=== PATIENT | female | born 1990 | race Caucasian/White ===

== ENCOUNTER 2023-08-30 12:16 | Emergency (ER) | payer SELFPAY ==
[2023-08-30 12:25] VITALS: BP 133/60; PULSE 63; RESP 18; TEMP 36.1; O2SAT 98; BMI 33.3
--- NOTE | 2023-08-30 13:35 | PC.NURSE ---
Patient was wanting to be given an inhaler today from ED. Educated patient that we would be unable to do that today as pharmacies are open and that she could be given a prescription for one. Listened to patient's lung sounds, clear to auscultation throughout, not in acute respiratory distress at time of assessment. Patient requesting to leave after education. Provider made aware patient leaving.
== END 2023-08-30 13:36 | disposition left against medical advice (07) ==
PROVIDERS: Emergency Provider Physician Assistant
DX: Z76.0 Encounter for issue of repeat prescription (principal)
CPT/HCPCS: 99281

== ENCOUNTER 2023-10-30 14:01 | Emergency (ER) | payer SELFPAY ==
[2023-10-30 14:20] VITALS: BP 130/68; PULSE 76; RESP 14; TEMP 36.3; O2SAT 97; BMI 33.3
--- NOTE | 2023-10-30 15:01 | ED_ITS ---
HPI - Recheck/Abnormal Lab/Rx <Rae Valenzuela PA-C - Last Filed: 10/30/23 15:30> General Chief Complaint: Recheck/Abnormal Lab/Rx Stated Complaint: need inhaler Time Seen by Provider: 10/30/23 15:01 Source: patient Mode of arrival: Ambulatory History of Present Illness HPI narrative: 33-year-old female with longstanding history is asthma is requesting an albuterol inhaler refill. She is currently in between providers as she lost her current medical insurance and she is looking for a new 1. She is denying any acute complaints whatsoever. She was diagnosed with asthma at around the 4th grade, she still continues to smoke and has been since about age 13 but has dropped from 1 pack a day to about a half pack per day. She used to be on a controller she is unsure of what type of medicine this was, as far as her albuterol use she takes a puff generally every day. No history of intubations or hospitalizations due to her asthma. All other systems are reviewed and are negative. Related Data Previous Rx's Medication Instructions Recorded albuterol sulfate 90 mcg/actuation 2 puff inhalation Q6H PRN 11/20/22 aerosol inhaler shortness of breath or wheezing #6.7 grams benzonatate 100 mg capsule 100 mg PO BID PRN cough #20 caps 11/20/22 fluticasone propionate 50 1 spray intranasal Q12H #16 grams 11/20/22 mcg/actuation nasal spray,suspension (Flonase Allergy Relief) albuterol sulfate 90 mcg/actuation 2 puff inhalation Q6H PRN 10/30/23 aerosol inhaler (ProAir HFA) shortness of breath or wheezing #6.7 grams Allergies Allergy/AdvReac Type Severity Reaction Status Date / Time No Known Drug Allergies Allergy Unverified 11/20/22 16:09 Patient History <Rae Valenzuela PA-C - Last Filed: 10/30/23 15:30> Social History Smoking Status: Current every day smoker Smoking Status: Current every day smoker tobacco type: cigarettes alcohol intake frequency: a few times a month Alcohol type: wine Substance Use Type: marijuana Exam <Rae Valenzuela PA-C - Last Filed: 10/30/23 15:30> Initial Vital Signs Initial Vital Signs: Vital Signs Temperature 97.4 F L 10/30/23 14:20 Pulse Rate 76 10/30/23 14:20 Respiratory Rate 14 10/30/23 14:20 Blood Pressure 130/68 10/30/23 14:20 Pulse Oximetry 97 10/30/23 14:20 Oxygen Delivery Method Room Air 10/30/23 14:20 Reviewed and are normal. Const Other: Smiling, seated, reading a book, no distress. Work of breathing is normal. Neck Other: No adenopathy. Resp Other: Clear to auscultation throughout all girard, no wheezes rales or rhonchi. Work of breathing is normal. Equal expansion. Cardio Other: Regular rate and rhythm. Skin Other: Normal color, turgor, temperature, no cyanosis and no eczematous findings. <Lanette Madera DO - Last Filed: 11/05/23 21:01> Initial Vital Signs Initial Vital Signs: Vital Signs Temperature 97.4 F L 10/30/23 14:20 Pulse Rate 76 10/30/23 14:20 Respiratory Rate 14 10/30/23 14:20 Blood Pressure 130/68 10/30/23 14:20 Pulse Oximetry 97 10/30/23 14:20 Oxygen Delivery Method Room Air 10/30/23 14:20 Course <Rae Valenzuela PA-C - Last Filed: 10/30/23 15:30> Vital Signs Vital signs: Vital Signs - 8 hr 10/30/23 14:20 Temperature 97.4 F L Pulse Rate 76 Respiratory Rate 14 Blood Pressure 130/68 Pulse Oximetry 97 Oxygen Delivery Method Room Air <Lanette Madera DO - Last Filed: 11/05/23 21:01> Vital Signs Vital signs: Vital Signs - 8 hr 10/30/23 14:20 Temperature 97.4 F L Pulse Rate 76 Respiratory Rate 14 Blood Pressure 130/68 Pulse Oximetry 97 Oxygen Delivery Method Room Air MDM - Recheck/Abnormal Lab/Rx <Rae Vlaenzuela PA-C - Last Filed: 10/30/23 15:30> MDM Narrative Medical decision making narrative: Albuterol inhaler is prescribed, I have given her 2 refills 1 for if she loses it and to to have a backup and give her some time to reestablish primary care. She will look online for [facility] and reestablish. Red flag warning signs are reviewed in detail. Discussed asthma as 3 components including inflammation, mucus and bronchoconstriction. She might benefit from a controller to minimize her use of the rescue inhaler. Seek medical attention if anything arises. Discharge Plan Departure Patient Disposition: Home Clinical Impression: Encounter for medication refill Asthma Qualifiers: Asthma severity: unspecified severity Asthma persistence: unspecified Asthma complication type: unspecified Qualified Code(s): J45.909 - Unspecified asthma, uncomplicated Instructions: Albuterol and Ipratropium Oral Inhalation Activity Restrictions/Additional Instructions: I have prescribed the albuterol inhaler with 2 refills. Please try to reestablish primary care and I wish you the best of luck and finding an insurance plan. We do have our walk-in clinic that is available as well if you need assistance with her medication. Please seek medical attention if you have any issues. Again asthma is a combination of inflammation, mucus as well as bronchoconstriction, there are other medications that can give you better control rather than having to use her rescue inhaler every day. Obviously keep trying to cut down on her smoking and eventually quit, it is one of the hardest things to do and I wish you the best of luck as well Prescriptions: New albuterol sulfate [ProAir HFA] 90 mcg/actuation HFA aerosol inhaler 2 puff inhalation Q6H PRN (Reason: shortness of breath or wheezing) Qty: 6.7 2RF No Action albuterol sulfate 90 mcg/actuation HFA aerosol inhaler 2 puff inhalation Q6H PRN (Reason: shortness of breath or wheezing) Qty: 6.7 0RF fluticasone propionate [Flonase Allergy Relief] 50 mcg/actuation spray,suspension 1 spray intranasal Q12H Qty: 16 0RF Rx Instructions: administer into each nostril benzonatate 100 mg capsule 100 mg PO BID PRN (Reason: cough) Qty: 20 0RF Referrals: Miscellaneous,Doctor, MD [Primary Care Provider] - Stand Alone Forms: Patient Portal/API ED Sign-out <Lanette Madera DO - Last Filed: 11/05/23 21:01> Cosign ED Attending Kendra Attestation: I was available for consultation.
--- NOTE | 2023-10-30 15:37 | PC.NURSE ---
pt here for medication refill, has no PCP or insurance currently, so she came to ER for help. exam done by provider
== END 2023-10-30 15:37 | disposition home or self-care (01) ==
PROVIDERS: Emergency Provider Physician Assistant Medical
DX: Z76.0 Encounter for issue of repeat prescription (principal); J45.909 Unspecified asthma, uncomplicated; F17.210 Nicotine dependence, cigarettes, uncomplicated
CPT/HCPCS: 99281; 99282

== ENCOUNTER 2024-07-24 14:21 | Emergency (ER) | payer OTHER, MEDICAID, SELFPAY ==
[2024-07-24 14:38] VITALS: BP 130/58; PULSE 62; RESP 16; TEMP 37; O2SAT 98; BMI 35.1
--- NOTE | 2024-07-24 15:38 | DI.RAD.S_ITS ---
PROCEDURE: XR FOOT RT MIN 3V INDICATIONS: nontraumatic R foot pain worse with standing TECHNIQUE: 3 views of the foot were acquired. COMPARISON: None. FINDINGS: Bones: No fractures or dislocations. No suspicious bony lesions. Incidental note is made of a bipartite medial sesamoid bone. Incidental note is made of an accessory ossicle, an os tibiale externum. Soft tissues: No tibiotalar joint effusion. Achilles tendon appears normal. IMPRESSION: No significant plain film abnormality is seen. Dictated by: Nathan Lucio M.D. on 07/24/2024 at 15:16 Approved by: Nathan Lucio M.D. on 07/24/2024 at 15:16
--- NOTE | 2024-07-24 16:12 | ED.EXTPRO ---
HPI - Extremity Problem <Terese Menon PA-C - Last Filed: 07/24/24 17:05> General Chief complaint: Extremity Problem,Nontraumatic Stated complaint: right foot pain Time Seen by Provider: 07/24/24 15:37 Source: patient Mode of arrival: Family Vehicle History of Present Illness HPI Narrative: Ms. Jesus Millan is a very pleasant 34-year-old female with a past medical history of asthma who presents to the emergency department for dorsal right foot pain x3 weeks. Patient states she had no traumatic injury that inside of the pain but has been gradually worsening over the last 3 weeks. She does state that she recently got a new position at work and she is on her feet most of the day. Describes the pain is primarily on the lateral dorsal aspect of the right foot. Pain is worse with walking, standing and of the foot gets hit/bumped. No swelling or skin changes. No redness, lesions, increased warmth, fevers, chills. No history of gout. She does not like taking medications so she did try ibuprofen 1 time without much relief. Related Data Home Medications Medication Instructions Recorded Confirmed cetirizine 10 mg capsule (All Day 10 mg PO DAILY PRN 03/19/24 05/20/24 Allergy (cetirizine)) Previous Rx's Medication Instructions Recorded albuterol sulfate 90 mcg/actuation 2 puff inhalation Q6H PRN 10/30/23 aerosol inhaler (ProAir HFA) shortness of breath or wheezing #6.7 grams inhalational spacing device #1 ea 03/19/24 (BreatheRite MDI Spacer) albuterol sulfate 90 mcg/actuation 2 puff inhalation Q4-6H PRN 03/21/24 aerosol inhaler shortness of breath or wheezing #8.5 grams fluticasone propionate 100 1 inh inhalation BID #60 ea 03/21/24 mcg/actuation blister powder for inhalation amoxicillin 875 mg-potassium 1 tab PO BID #20 tabs 05/17/24 clavulanate 125 mg tablet Allergies Allergy/AdvReac Type Severity Reaction Status Date / Time No Known Drug Allergies Allergy Verified 05/20/24 09:29 Review of Systems <Terese Menon PA-C - Last Filed: 07/24/24 17:05> Review of Systems ROS Unobtainable: All systems reviewed & are unremarkable except as noted in HPI and below Patient History <Terese Menon PA-C - Last Filed: 07/24/24 17:05> Medical History Eczema Allergies Anxiety Chronic back pain Chicken pox Tobacco abuse Asthma Surgical History History of adenoidectomy Family History Father Cancer Mother Hypertension Mental health problem Grandfather Cancer Social History Smoking Status: Current every day smoker Smoking Status: Current every day smoker tobacco type: cigarettes alcohol intake frequency: a few times a month Alcohol type: wine Exam <Terese Menon PA-C - Last Filed: 07/24/24 17:05> Narrative Exam Narrative: GENERAL: 34 year old patient appears stated age. Well-developed patient, in no acute distress. HEAD: Atraumatic. Normocephalic. . CARDIOVASCULAR: Regular rate RESPIRATORY: ?Nonlabored respirations. ?Speaking in clear, full sentences. EXTREMITIES: Tenderness to palpation of right dorsal foot primarily along lateral aspect/5th metatarsal. No focal or point tenderness. No tenderness to palpation of medial or lateral malleolus. No swelling or skin changes. No tenderness to palpation of 1st MCP. Fungal disease of 1st toenail. Strong DP and PT pulses, brisk capillary refill, sensation intact to light touch the dorsal and plantar aspect of the foot. NEURO: AOx3. ?Clear speech. ?Moves all 4 extremities appropriately. SKIN: No rash or erythema of visible areas Initial Vital Signs Initial Vital Signs: Vital Signs Temperature 98.6 F 07/24/24 14:38 Pulse Rate 62 07/24/24 14:38 Respiratory Rate 16 07/24/24 14:38 Blood Pressure 130/58 L 07/24/24 14:38 Pulse Oximetry 98 07/24/24 14:38 Oxygen Delivery Method Room Air 07/24/24 14:38 <Ann Manning MD - Last Filed: 07/26/24 07:32> Initial Vital Signs Initial Vital Signs: Vital Signs Temperature 98.6 F 07/24/24 14:38 Pulse Rate 62 07/24/24 14:38 Respiratory Rate 16 07/24/24 14:38 Blood Pressure 130/58 L 07/24/24 14:38 Pulse Oximetry 98 07/24/24 14:38 Oxygen Delivery Method Room Air 07/24/24 14:38 Course <Terese Menon PA-C - Last Filed: 07/24/24 17:05> Orders Ordered: ED Orders 07/24/24 15:38 XR foot RT min 3V Stat Vital Signs Vital signs: Vital Signs - 8 hr 07/24/24 14:38 Temperature 98.6 F Pulse Rate 62 Respiratory Rate 16 Blood Pressure 130/58 L Pulse Oximetry 98 Oxygen Delivery Method Room Air <Ann Manning MD - Last Filed: 07/26/24 07:32> Orders Ordered: ED Orders 07/24/24 15:38 XR foot RT min 3V Stat Vital Signs Vital signs: Vital Signs - 8 hr 07/24/24 14:38 Temperature 98.6 F Pulse Rate 62 Respiratory Rate 16 Blood Pressure 130/58 L Pulse Oximetry 98 Oxygen Delivery Method Room Air MDM - Extremity (Nontraumatic) <Terese Menon PA-C - Last Filed: 07/24/24 17:05> Imaging Data Right Foot X-Ray: Radiologist's Impression: PROCEDURE: XR FOOT RT MIN 3V INDICATIONS: nontraumatic R foot pain worse with standing TECHNIQUE: 3 views of the foot were acquired. COMPARISON: None. FINDINGS: Bones: No fractures or dislocations. No suspicious bony lesions. Incidental note is made of a bipartite medial sesamoid bone. Incidental note is made of an accessory ossicle, an os tibiale externum. Soft tissues: No tibiotalar joint effusion. Achilles tendon appears normal. IMPRESSION: No significant plain film abnormality is seen. MDM Narrative Medical decision making narrative: 34-year-old female with a past medical history of asthma who presents to the emergency department for dorsal right foot pain x3 weeks. Differential diagnosis includes but is not limited to tendinitis, stress fracture, sprain, strain, arthritis, gout, bone spur, etc. On exam the patient is in no acute distress, nontoxic appearing, vital signs appropriate. She is pain on the lateral dorsal aspect of her right foot with no known trauma. No skin changes, increased warmth, pain with range of motion, focal/pinpoint pain. We will obtain x-ray right foot rule out bony abnormality. She would declines pain medicine at this time. Foot x-ray reveals no acute bony abnormality. Patient was provided with Will wrap and recommended to wrap the foot for compression. We discussed rice therapy, ibuprofen/Tylenol, rest, follow up with [facility]. Also recommended PCP for ER follow up. Advised supportive footwear. Patient declines need for pain medicine or crutches. She verbalized understanding of all information and is stable for discharge home. Discharge Plan Departure Patient Disposition: Home Clinical Impression: Right foot strain Qualifiers: Encounter type: initial encounter Qualified Code(s): S96.911A - Strain of unspecified muscle and tendon at ankle and foot level, right foot, initial encounter Instructions: DI for Foot Pain Activity Restrictions/Additional Instructions: Today you were evaluated for pain on your right foot. We obtained an x-ray of the foot which did not reveal any acute bony abnormalities. It is very important that you follow up with a machine puller and laster for further evaluation. Please call to schedule an appointment with [facility]. They have an office here in [place]. You may call [phone] 9a-5p M-F. Please take Ibuprofen (Motrin/Advil) or Acetaminophen (Tylenol) for pain. These are available over the counter. You may take Ibuprofen 600 mg every 8 hours with food for pain. You may also take Acetaminophen 650 mg every 4-6 hours for pain. Do not exceed 3000 mg of Tylenol a day as this can cause liver damage. Do not drink alcohol with either of these medications. Please use RICE therapy for your pain in addition to ibuprofen/acetaminophen. Rest the painful area. Ice the area of pain/swelling for at least 15 minutes, 4x a day. Compress the area of swelling using a brace, wrap, or splint if applied. Elevate the painful or swollen extremity by supporting it above the level of the heart with pillows when sitting or laying. Please follow up with your primary care doctor within the next 2-3 days for ER follow-up. (If you do not have a PCP you can call [phone]. ?to schedule an appointment with an [facility] Primary Care Provider) IF YOU DEVELOP ANY NEW OR WORSENING SYMPTOMS, RETURN TO THE ER! Please read the attached instructions, they highlight more specific treatments and interventions for you at home. Thank you for letting me participate in your care, Terese Menon PA-C Prescriptions: No Action fluticasone propionate 100 mcg/actuation blister with device 1 inh inhalation BID Qty: 60 2RF albuterol sulfate 90 mcg/actuation HFA aerosol inhaler 2 puff inhalation Q4-6H PRN (Reason: shortness of breath or wheezing) Qty: 8.5 3RF All Day Allergy (cetirizine) 10 mg capsule 10 mg PO DAILY PRN (DME) BreatheRite MDI Spacer Spacer See Rx Instructions .Route Qty: 1 0RF Rx Instructions: As directed amoxicillin-pot clavulanate 875-125 mg tablet 1 tab PO BID Qty: 20 0RF albuterol sulfate [ProAir HFA] 90 mcg/actuation HFA aerosol inhaler 2 puff inhalation Q6H PRN (Reason: shortness of breath or wheezing) Qty: 6.7 2RF Referrals: Simona Goddard MD [Primary Care Provider] - Stand Alone Forms: Patient Portal/API/Survey, Work Release Note ED Sign-out <Ann Manning MD - Last Filed: 07/26/24 07:32> Cosign ED Attending Cosashleyature Attestation: I was immediately available in the department for consultation throughout this patient's visit. Ann Manning MD
[2024-07-24 17:20] VITALS: BP 117/68; PULSE 69; RESP 14; O2SAT 97
[2024-07-24 17:23] VITALS: BP 117/68; PULSE 69; RESP 14; O2SAT 97
== END 2024-07-24 17:23 | disposition home or self-care (01) ==
PROVIDERS: Emergency Provider Physician Assistant; PCP Family Medicine
DX: S96.911A Strain of unspecified muscle and tendon at ankle and foot level, right foot, initial encounter (principal)
CPT/HCPCS: 73630; 99281; 99283

== ENCOUNTER → 2024-07-29 08:59 | Outpatient (CLI) | payer SELFPAY ==
[2024-07-29 10:14] LABS: Add Manual Diff / Slide Review NO; Basophils Absolute Auto 0 /uL (0-100); Basophils Percent Auto 0.6 % (0-2); Eosinophils Absolute Auto 200 /uL (0-450); Hematocrit 42.8 % (36-46); Hemoglobin 14.7 g/dL (12.0-16.0); Lymphocytes Absolute Auto 1300 /uL (1100-4500); Lymphocytes Percent Auto 20.6 % (25-40); Mean Corpuscular HGB Conc 34.4 % (30-36); Mean Corpuscular Hemoglobin 29.5 PG (26-34); Mean Corpuscular Volume 85.8 fL (80-100); Monocytes Absolute Auto 400 /uL (0-900); Monocytes Percent Auto 7.2 % (3-14); Neutrophils Absolute Auto 4200 /uL (1500-7000); Neutrophils Percent Auto 68.6 % (50-75); Platelet Count 226 X10^3/uL (150-400); Red Blood Cell Count 4.99 X10^6/uL (4.0-5.2); Red Cell Distribution Width 12.3 % (11.6-14.8); White Blood Cell Count 6.2 X10^3/uL (4.5-11.0)
[2024-07-29 10:42] LABS: Alanine Aminotransferase 33 IU/L (<35); Albumin 4.6 g/dL (3.5-5.0); Albumin Globulin Ratio 1.8 (1.0-2.8); Alkaline Phosphatase 61 U/L (38-126); Aspartate Aminotransferase 30 IU/L (14-36); BUN Creatinine Ratio 18.5 (6-22); Bilirubin Total 0.7 mg/dL (0.2-1.3); Blood Urea Nitrogen 17 mg/dL (7-17); Calcium 10.1 mg/dL (8.4-10.2); Carbon Dioxide 27 mmol/L (22-32); Chloride 104 mmol/L (98-107); Cholesterol 192 mg/dL (140-199); Estimated Glomerular Filt Rate > 60 mL/min (>60); Globulin 2.6 g/dL (1.7-4.1); Glucose 101 mg/dL (70-100); HDL Cholesterol 46 mg/dL (40-60); HEMOLYSIS < 15 (0-50); LDL Cholesterol Calculated 125 mg/dL (<100); Sodium 137 mmol/L (137-145); Total Protein 7.2 g/dL (6.3-8.2); Triglycerides 105 mg/dL (35-150)
[2024-07-29 11:02] LABS: TSH w/ Reflex to FT4 2.14 uIU/mL (0.47-4.68)
== END ==
PROVIDERS: PCP Family Medicine; Referring Provider Family Medicine; Visit Provider Family Medicine
DX: E66.9 Obesity, unspecified (principal); Z83.3 Family history of diabetes mellitus
CPT/HCPCS: 36415; 80053; 80061; 83036; 84443; 85025

== ENCOUNTER 2024-09-04 10:53 | Emergency (ER) | payer OTHER, SELFPAY ==
[2024-09-04 11:03] VITALS: BP 129/74; PULSE 61; RESP 16; TEMP 36.9; O2SAT 99; BMI 34.9
--- NOTE | 2024-09-04 11:54 | ED.GIBLEED ---
HPI - GI Bleed General Chief complaint: GI Bleed Stated complaint: Blood in Stool Time Seen by Provider: 09/04/24 11:31 Source: patient Mode of arrival: Family Vehicle History of Present Illness HPI Narrative: Ms. Jesus Millan is a pleasant 34-year-old female with a past medical history of asthma who presents to the emergency department for bright red blood in her stool x2 days. Patient denies a history of constipation, straining, or recent anal sex. States that she has typically 1-2 soft bowel movements a day. Yesterday she had a normal soft bowel movement however there was a large amount of bright red blood in the toilet and when she wiped. There was no straining or pain with the bowel movement. When she had a bowel movement again today she had more bright red blood which prompted her emergency department visit. She denies abdominal pain, rectal pain, known hemorrhoid or history of GI bleeding. She does admit to some mild abnormal vaginal discharge that is thick. She denies dysuria, hematuria, abdominal pain, nausea, vomiting, fevers, chills. She has been having occasional hot flashes and feel fatigued. Related Data Home Medications Medication Instructions Recorded Confirmed cetirizine 10 mg capsule (All Day 10 mg PO DAILY PRN 03/19/24 07/29/24 Allergy (cetirizine)) Previous Rx's Medication Instructions Recorded albuterol sulfate 90 mcg/actuation 2 puff inhalation Q6H PRN 10/30/23 aerosol inhaler (ProAir HFA) shortness of breath or wheezing #6.7 grams inhalational spacing device #1 ea 03/19/24 (BreatheRite MDI Spacer) albuterol sulfate 90 mcg/actuation 2 puff inhalation Q4-6H PRN 07/29/24 aerosol inhaler shortness of breath or wheezing #8.5 grams fluticasone propionate 250 1 inh inhalation BID #60 ea 07/29/24 mcg/actuation blister powder for inhalation Allergies Allergy/AdvReac Type Severity Reaction Status Date / Time No Known Drug Allergies Allergy Verified 07/29/24 08:11 Review of Systems Review of Systems ROS Unobtainable: All systems reviewed & are unremarkable except as noted in HPI and below Patient History Medical History Eczema Allergies Anxiety Chronic back pain Chicken pox Tobacco abuse Asthma Surgical History History of adenoidectomy Family History Father Cancer Mother Hypertension Mental health problem Grandfather Cancer Social History Smoking Status: Current every day smoker Smoking Status: Current every day smoker tobacco type: cigarettes alcohol intake frequency: a few times a month Alcohol type: wine Exam Narrative Exam Narrative: GENERAL: 34 year old patient appears stated age. Well-developed patient, in no acute distress. HEAD: Atraumatic. Normocephalic. CARDIOVASCULAR: Regular rate and rhythm. RESPIRATORY: ?Nonlabored respirations. ?Speaking in clear, full sentences. ?Clear to auscultation. Breath sounds equal bilaterally. No wheezes, rales, or rhonchi. ? GASTROINTESTINAL: Abdomen soft, non-tender, nondistended. Normal bowel sounds. Rectal exam performed with female ED industrial ecologist, patient gave verbal consent. External rectal exam reveals no hemorrhoids or anal fissures, no abnormalities palpated on internal exam, light brown stool on glove, negative bedside Hemoccult. EXTREMITIES: No edema or joint tenderness. BACK: Nontender without deformity or crepitance. No flank tenderness. NEURO: AOx3. ?Clear speech. ?Moves all 4 extremities appropriately. SKIN: No rash or erythema of visible areas Initial Vital Signs Initial Vital Signs: Vital Signs Temperature 98.5 F 09/04/24 11:03 Pulse Rate 61 09/04/24 11:03 Respiratory Rate 16 09/04/24 11:03 Blood Pressure 129/74 09/04/24 11:03 Pulse Oximetry 99 09/04/24 11:03 Oxygen Delivery Method Room Air 09/04/24 11:03 Course Orders Ordered: ED Orders 09/04/24 12:11 CT abdomen pelvis w con Stat 09/04/24 12:27 Complete Blood Count AUTO DIFF Stat Comprehensive Metabolic Panel Stat PTT Partial Thromboplastin Sunil Stat Prothrombin Time INR Stat 09/04/24 12:30 Urinalysis and Microscopic Stat 09/04/24 12:47 Chlamydia/Gonoc/Myco Genital Stat Wet Prep Tric BV Bonita Stat Vital Signs Vital signs: Vital Signs - 8 hr 09/04/24 14:07 Temperature 98 F Pulse Rate 59 L Respiratory Rate 18 Blood Pressure 125/77 Pulse Oximetry 98 Oxygen Delivery Method Room Air MDM - GI Bleed Medical Records Attestation: I reviewed the patient's medical records. Lab Data 09/04/24 12:27 09/04/24 12:27 Labs: Lab Results 09/04/24 09/04/24 09/04/24 Range/Units 12:27 12:30 12:47 WBC 6.4 (4.5-11.0) X10^3/uL RBC 4.51 (4.0-5.2) X10^6/uL Hgb 13.4 (12.0-16.0) g/dL Hct 38.6 (36-46) % MCV 85.5 (80-100) fL MCH 29.6 (26-34) PG MCHC 34.6 (30-36) % RDW 12.8 (11.6-14.8) % Plt Count 208 (150-400) X10^3/uL Neut % (Auto) 71.6 (50-75) % Lymph % (Auto) 18.8 L (25-40) % Jay % (Auto) 6.2 (3-14) % Eos % (Auto) 2.4 (2-4) % Baso % (Auto) 1.0 (0-2) % Neut # (Auto) 4600 (2204-2444) /uL Lymph # (Auto) 1200 (7547-5090) /uL Jay # (Auto) 400 (0-900) /uL Eos # (Auto) 200 (0-450) /uL Baso # (Auto) 100 (0-100) /uL PT 10.9 (9.4-12.5) SECONDS INR 1.0 (0.9-1.3) APTT 32 (25.1-36.5) SECONDS Sodium 137 (137-145) mmol/L Potassium 4.5 (3.4-5.1) mmol/L Chloride 106 (98-107) mmol/L Carbon Dioxide 23 (22-32) mmol/L BUN 14 (7-17) mg/dL Creatinine 0.77 (0.52-1.04) mg/dL Estimated GFR > 60 (>60) mL/min BUN/Creatinine Ratio 18.2 (6-22) Glucose 95 (70-100) mg/dL Calcium 9.0 (8.4-10.2) mg/dL Total Bilirubin 1.0 (0.2-1.3) mg/dL AST 43 H (14-36) IU/L ALT 45 H (<35) IU/L Alkaline Phosphatase 56 (38-126) U/L Total Protein 7.3 (6.3-8.2) g/dL Albumin 4.3 (3.5-5.0) g/dL Globulin 3.0 (1.7-4.1) g/dL Albumin/Globulin Ratio 1.4 (1.0-2.8) Urine Color Yellow Urine Appearance Clear Urine pH 7.5 (4.5-8.0) Ur Specific Polo 1.020 (1.000-1.035) Urine Protein Trace H (Negative) Urine Glucose (UA) Negative (Negative) g/dL Urine Ketones Negative (NEGATIVE) Urine Occult Blood Negative (Negative) Urine Nitrate Negative (Negative) Urine Bilirubin Negative (NEGATIVE) Urine Urobilinogen 0.2 (0.2) E.U./dL Ur Leukocyte Esterase Negative (NEGATIVE) Urine RBC None seen (0-5/HPF) Urine WBC 0-1/hpf (0-5/HPF) Ur Squamous Epith Cells 5-10 /hpf H (0-5/HPF) Urine Bacteria Moderate (10-30) H (None) Urine Mucus 1+ H (Negative) Ur Culture Indicated? Cult not indicated Vol Urine Centrifuged Low vol <10ml (spun) A C.trachomatis Ampl DNA Negative (Negative) M. genitalium (PCR) Negative (Negative) N.gonorrhoeae Ampl DNA Negative (Negative) Point of Care Testing Stool Occult Blood Negative Imaging Data CT scan - abdomen/pelvis: Radiologist's Impression: PROCEDURE: CT ABDOMEN PELVIS W CON INDICATIONS: BRB in stool TECHNIQUE: After the administration of intravenous contrast, axial sections acquired from the lung bases to the pubic symphysis. Coronal and sagittal reformats were performed. For radiation dose reduction, the following was used: automated exposure control, adjustment of mA and/or kV according to patient size. COMPARISON: None. FINDINGS: Image quality: Diagnostic. Lower Chest: No significant findings. ABDOMEN: Liver: No solid mass. An enlarged, fatty infiltrated liver can be seen. Gallbladder: No radiopaque gallstones or wall thickening. Biliary ducts: No biliary dilation. Pancreas: No ductal dilation. Spleen: Size is within normal limits. Adrenal Glands: No adrenal nodules. Kidneys and Ureters: No hydronephrosis. No solid mass. No complex renal cystic lesion which requires follow up. Stomach and Bowel: There is moderate wall thickening seen involving the distal colon, including involving the sigmoid colon and the rectum. Mild surrounding inflammatory change can be seen. The more proximal colon demonstrates no significant abnormality. No dilated loops of small bowel are seen. A normal appendix is noted. Peritoneum: No peritoneal abscess is seen. No abnormal intraperitoneal fluid. No free air. Ventral Wall: No significant ventral hernia. Abdominal Nodes: No retroperitoneal or mesenteric adenopathy by size criteria. Vessels: Aorta and inferior vena cava are normal in size. PELVIS: Pelvic Organs: The IUD is seen at its expected location. Bladder: No bladder wall thickening, accounting for underdistention. Pelvic Nodes: No enlarged lymph nodes. Miscellaneous: No inguinal hernias are seen. Bones: No aggressive osseous abnormality. Focal lower lumbar spine degenerative changes are seen. IMPRESSION: Moderate wall thickening can be seen involving the sigmoid colon and the rectum. Please correlate with potential infectious and inflammatory causes of colitis. No findings of perforation or abscess can be seen. When clinically appropriate (following adequate treatment of the patient's current clinical episode) a colonoscopy is recommended for further evaluation for a potential underlying mass (if not already recently done). Additional findings: Enlarged, fatty infiltrated liver. Normal appendix IUD Focal lower lumbar spine degenerative change MDM Narrative Medical decision making narrative: 34-year-old female with a past medical history of asthma who presents to the emergency department for bright red blood in her stool x2 days. Differential diagnosis includes but is not limited to anal fissure, hemorrhoid, diverticulitis, GI bleed, anemia, etc. On exam patient is in no acute distress, nontoxic-appearing, all vital signs within normal limits. Abdomen soft and nontender. No visual or hemorrhoid visualized on external rectal exam, negative Hemoccult, however she does report 2 episodes of gross blood. We will proceed with labs to rule out anemia and imaging to rule out diverticulitis, large mass or other cause of bleed. Patient will likely need to follow up with colonoscopy. CT abdomen and pelvis reveals moderate wall thickening can be seen involving the sigmoid colon and the rectum. Please correlate with a potential infectious and inflammatory causes of colitis. I printed CT result and discussed all incidental findings with the patient including fatty liver. Labs reveal normal WBC count 6.4, normal hemoglobin 13.4 hematocrit 38.6. Normal coags. Normal renal function. Glucose 95. AST ALT slightly elevated at 43 and 45 respectively. Urinalysis with moderate bacteria and squamous epithelial cells, consistent with likely contamination from vaginal discharge. Vaginal wet prep negative for clue cells, yeast, Trichomonas. Gonorrhea chlamydia mycoplasma pending at time of discharge, patient understands she will need to be called to return to the ED if positive. Discussed possible inflammatory versus infectious colitis. At this time there is no signs of infection. I did prescribe the patient a course of Augmentin to take in the event that she does develop any abdominal discomfort. Informed that she needs a colonoscopy for further evaluation, advised she follow up with PCP or contact [facility] to schedule. We discussed ED return precautions. She verbalized understanding of all information is agreeable to the plan. She is stable for discharge home. Discharge Plan Departure Patient Disposition: Home Clinical Impression: Colitis, Bloody stool Instructions: DI for Colitis Activity Restrictions/Additional Instructions: Dear Ms. Jesus Millan, Thank you for coming to the emergency department. Today you were evaluated for blood in your stool. Your lab work was overall reassuring except for slightly elevated liver enzymes. The CT scan of your abdomen and pelvis revealed some wall thickening of the sigmoid colon and the rectum which can be signs of colitis. At this time there is no sign of infection however if you develop any abdominal discomfort I would like you to starting complete the full course of antibiotics. Please however, if you develop fevers, severe pain, persistent bleeding, or any other concerns return to the emergency department. It is very important for you to follow up with the primary care doctor for further evaluation. In addition you need to get a colonoscopy. You can call to schedule an appointment with [facility] phone number [phone] to schedule a colonoscopy. Please follow up with your primary care doctor within the next 2-3 days for ER follow-up. (If you do not have a PCP you can call [phone]. ?to schedule an appointment with an [facility] Primary Care Provider) IF YOU DEVELOP ANY NEW OR WORSENING SYMPTOMS, RETURN TO THE ER! Please read the attached instructions, they highlight more specific treatments and interventions for you at home. Thank you for letting me participate in your care, Treese Menon PA-C Prescriptions: No Action fluticasone propionate 250 mcg/actuation blister with device 1 inh inhalation BID Qty: 60 1RF albuterol sulfate 90 mcg/actuation HFA aerosol inhaler 2 puff inhalation Q4-6H PRN (Reason: shortness of breath or wheezing) Qty: 8.5 3RF All Day Allergy (cetirizine) 10 mg capsule 10 mg PO DAILY PRN (DME) BreatheRite MDI Spacer Spacer See Rx Instructions .Route Qty: 1 0RF Rx Instructions: As directed albuterol sulfate [ProAir HFA] 90 mcg/actuation HFA aerosol inhaler 2 puff inhalation Q6H PRN (Reason: shortness of breath or wheezing) Qty: 6.7 2RF Referrals: Simona Goddard MD [Primary Care Provider] - Stand Alone Forms: Patient Portal/API/Survey
--- NOTE | 2024-09-04 12:11 | DI.CT.S_ITS ---
PROCEDURE: CT ABDOMEN PELVIS W CON INDICATIONS: BRB in stool TECHNIQUE: After the administration of intravenous contrast, axial sections acquired from the lung bases to the pubic symphysis. Coronal and sagittal reformats were performed. For radiation dose reduction, the following was used: automated exposure control, adjustment of mA and/or kV according to patient size. COMPARISON: None. FINDINGS: Image quality: Diagnostic. Lower Chest: No significant findings. ABDOMEN: Liver: No solid mass. An enlarged, fatty infiltrated liver can be seen. Gallbladder: No radiopaque gallstones or wall thickening. Biliary ducts: No biliary dilation. Pancreas: No ductal dilation. Spleen: Size is within normal limits. Adrenal Glands: No adrenal nodules. Kidneys and Ureters: No hydronephrosis. No solid mass. No complex renal cystic lesion which requires follow up. Stomach and Bowel: There is moderate wall thickening seen involving the distal colon, including involving the sigmoid colon and the rectum. Mild surrounding inflammatory change can be seen. The more proximal colon demonstrates no significant abnormality. No dilated loops of small bowel are seen. A normal appendix is noted. Peritoneum: No peritoneal abscess is seen. No abnormal intraperitoneal fluid. No free air. Ventral Wall: No significant ventral hernia. Abdominal Nodes: No retroperitoneal or mesenteric adenopathy by size criteria. Vessels: Aorta and inferior vena cava are normal in size. PELVIS: Pelvic Organs: The IUD is seen at its expected location. Bladder: No bladder wall thickening, accounting for underdistention. Pelvic Nodes: No enlarged lymph nodes. Miscellaneous: No inguinal hernias are seen. Bones: No aggressive osseous abnormality. Focal lower lumbar spine degenerative changes are seen. IMPRESSION: Moderate wall thickening can be seen involving the sigmoid colon and the rectum. Please correlate with potential infectious and inflammatory causes of colitis. No findings of perforation or abscess can be seen. When clinically appropriate (following adequate treatment of the patient's current clinical episode) a colonoscopy is recommended for further evaluation for a potential underlying mass (if not already recently done). Additional findings: Enlarged, fatty infiltrated liver. Normal appendix IUD Focal lower lumbar spine degenerative change Dictated by: Nathan Lucio M.D. on 09/04/2024 at 11:56 Approved by: Nathan Lucio M.D. on 09/04/2024 at 11:58
[2024-09-04 12:37] LABS: Add Manual Diff / Slide Review NO; Basophils Absolute Auto 100 /uL (0-100); Eosinophils Absolute Auto 200 /uL (0-450); Eosinophils Percent Auto 2.4 % (2-4); Hematocrit 38.6 % (36-46); Hemoglobin 13.4 g/dL (12.0-16.0); Lymphocytes Absolute Auto 1200 /uL (1100-4500); Lymphocytes Percent Auto 18.8 % (25-40); Mean Corpuscular HGB Conc 34.6 % (30-36); Mean Corpuscular Hemoglobin 29.6 PG (26-34); Mean Corpuscular Volume 85.5 fL (80-100); Monocytes Absolute Auto 400 /uL (0-900); Monocytes Percent Auto 6.2 % (3-14); Neutrophils Absolute Auto 4600 /uL (1500-7000); Neutrophils Percent Auto 71.6 % (50-75); Platelet Count 208 X10^3/uL (150-400); Red Blood Cell Count 4.51 X10^6/uL (4.0-5.2); Red Cell Distribution Width 12.8 % (11.6-14.8); White Blood Cell Count 6.4 X10^3/uL (4.5-11.0)
[2024-09-04 12:51] LABS: Prothrombin Time 10.9 SECONDS (9.4-12.5)
[2024-09-04 12:54] LABS: PTT Partial Thromboplastin Tim 32 SECONDS (25.1-36.5)
[2024-09-04 12:55] LABS: Albumin 4.3 g/dL (3.5-5.0); Albumin Globulin Ratio 1.4 (1.0-2.8); Alkaline Phosphatase 56 U/L (38-126); BUN Creatinine Ratio 18.2 (6-22); Blood Urea Nitrogen 14 mg/dL (7-17); Carbon Dioxide 23 mmol/L (22-32); Chloride 106 mmol/L (98-107); Estimated Glomerular Filt Rate > 60 mL/min (>60); Glucose 95 mg/dL (70-100); Sodium 137 mmol/L (137-145); Total Protein 7.3 g/dL (6.3-8.2)
[2024-09-04 13:02] LABS: Alanine Aminotransferase 45 IU/L (<35); Aspartate Aminotransferase 43 IU/L (14-36); HEMOLYSIS 100 (0-50); Potassium 4.5 mmol/L (3.4-5.1)
[2024-09-04 13:13] LABS: Appearance Urine UA CLEAR; Bilirubin Urine UA NEGATIVE (NEGATIVE); Color Urine UA YELLOW; Glucose Urine UA NEGATIVE (Negative); Ketones Urine UA NEGATIVE (NEGATIVE); Leukocyte Esterase Urine UA NEGATIVE (NEGATIVE); Nitrite Urine UA NEGATIVE (Negative); Occult Blood Urine UA NEGATIVE (Negative); Protein Urine UA TRACE (Negative); Urobilinogen Urine UA 0.2 E.U./dL (0.2)
[2024-09-04 13:19] LABS: pH Urine UA 7.5 (4.5-8.0)
[2024-09-04 13:21] LABS: RBC Urine None Seen (0-5/HPF); Urine Volume Low Vol <10mL (spun)
[2024-09-04 13:22] LABS: Bacteria Urine Moderate (10-30); Culture Indicated Urine Cult Not Indicated; Mucus Urine 1+ (Negative); Squamous Epithelial Cell Urine 5-10 /HPF (0-5/HPF); WBC Urine 0-1/HPF (0-5/HPF)
[2024-09-04 14:07] VITALS: BP 125/77; PULSE 59; RESP 18; TEMP 36.6; O2SAT 98
[2024-09-08 03:09] LABS: Chlamydia trachomatis Negative (Negative); Mycoplasma genitalium Negative (Negative); Neisseria gonorrhoeae Negative (Negative)
== END 2024-09-04 14:07 | disposition home or self-care (01) ==
PROVIDERS: Emergency Provider Physician Assistant; PCP Family Medicine
DX: K52.9 Noninfective gastroenteritis and colitis, unspecified (principal); K92.1 Melena; N89.8 Other specified noninflammatory disorders of vagina
CPT/HCPCS: 36415; 74177; 80053; 81001; 82272; 85025; 85610; 85730; 87210; 87491; 87563; 87591; 99284; Q9967